=== PATIENT | male | born 1950 | race Caucasian/White ===

== ENCOUNTER 2016-05-27 08:44 | Emergency (ER) | payer MEDICARE, OTHER ==
[~2016-05-27] VITALS: Ht 177.8 cm; Wt 84.1 kg
[~2016-05-27 08:44] MED LIST: AMOX-358 PO; ASCO100T6 PO; ASCO500T6 PO; ASPI-860 PO; ATOR20TA PO; CHOL100061 PO; CLIN-78 PO; CLOP75TA28 PO; CTLP20T PO; ERGO400C PO; HYDR-3702 PO; MAGN100T4 PO; METO25TA60 PO; MGX400T PO; MULT-954 PO; RANI-419 PO; RANI150C4 PO; WARF4TAB PO; WARF5TAB PO; ZLP5T PO
--- OUTSIDE RECORDS SUMMARY | 2016-05-27 08:49 | XMS REPORT ---
Author Author GENERATED, SYSTEM Organization Unknown Address Unknown Phone Unavailable Care Team Providers Care Decaler Name Role Phone UNASSIGNED DOCTOR , DOCTOR PP [phone] Reason For Visit Chief Complaint CHEST PAIN SOB,C Social History Functional Status Functional Status from 01/30/2014 8:19 AM:LOC : AlertOriented To : Person,Place, TimeWeight Bearing Status : FullAssist Level : Independent# Assists : 1Functional Status from 01/29/2014 7:00 PM:LOC : AlertOriented To : Person,Place, Time,EventWeight Bearing Status : FullAssist Level : Independent# Assists : 1Functional Status from 01/29/2014 11:20 AM:LOC : AlertOriented To : Person,Place ,TimeWeight Bearing Status : FullAssist Level : Partial# Assists : 1 Vital Signs Hospital Vital Signs from 01/30/2014 9:16 AM:Weight : 83.0/ kgHeight : 5/8 ft, inHospital Vital Signs from 01/30/2014 9:00 AM:Heart Rate : 72Resp Rate : 18O2 Saturation (%) : 94Hospital Vital Signs from 01/30/2014 8:19 AM:Heart Rate : 72Hospital Vital Signs from 01/30/2014 8:15 AM:Temp : 98.2Heart Rate : 73Resp Rate : 17O2 Saturation (%) : 94Hospital Vital Signs from 01/30/2014 5:00 AM: Systolic BP (mmHg) : 120Diastolic BP (mmHg) : 78Mean BP (mmHg) : 83Hospital Vital Signs from 01/30/2014 3:56 AM:Weight : 83.0/ kgHeight : 5/8 ft,inHospital Vital Signs from 01/30/2014 3:00 AM:Temp : 97Heart Rate : 67Resp Rate : 11O2 Saturation (%) : 95Hospital Vital Signs from 01/30/2014 2:45 AM:Heart Rate : 66Resp Rate : 18O2 Saturation (%) : 96Hospital Vital Signs from 01/30/2014 2:30 AM:Heart Rate : 60Resp Rate : 14O2 Saturation (%) : 96Hospital Vital Signs from 01/30/2014 2:15 AM:Heart Rate : 58Resp Rate : 7O2 Saturation (%) : 95Hospital Vital Signs from 01/30/2014 2:00 AM:Heart Rate : 60Resp Rate : 11O2 Saturation (% ) : 94Hospital Vital Signs from 01/30/2014 1:45 AM:Heart Rate : 68Resp Rate : 25O2 Saturation (%) : 97Hospital Vital Signs from 01/30/2014 1:30 AM:Heart Rate : 61Resp Rate : 10O2 Saturation (%) : 96Hospital Vital Signs from 01/30/2014 1: 15 AM:Heart Rate : 59Resp Rate : 13O2 Saturation (%) : 96Hospital Vital Signs from 01/30/2014 1:00 AM:Heart Rate : 62Resp Rate : 14O2 Saturation (%) : 96Hospital Vital Signs from 01/30/2014 12:45 AM:Heart Rate : 58Resp Rate : 14O2 Saturation (%) : 96Hospital Vital Signs from 01/30/2014 12:30 AM:Heart Rate : 58Resp Rate : 11O2 Saturation (%) : 95Hospital Vital Signs from 01/30/2014 12:15 AM:Heart Rate : 64Resp Rate : 12O2 Saturation (%) : 93Hospital Vital Signs from 01/30/2014 12:00 AM:Heart Rate : 67Resp Rate : 12O2 Saturation (%) : 95Hospital Vital Signs from 01/29/2014 11:45 PM:Heart Rate : 66Resp Rate : 12O2 Saturation ( %) : 95Hospital Vital Signs from 01/29/2014 11:30 PM:Heart Rate : 61Resp Rate : 14O2 Saturation (%) : 94Hospital Vital Signs from 01/29/2014 11:15 PM:Heart Rate : 62Resp Rate : 14O2 Saturation (%) : 96Hospital Vital Signs from 01/29/2014 11: 00 PM:Heart Rate : 68Resp Rate : 11O2 Saturation (%) : 94Hospital Vital Signs from 01/29/2014 10:45 PM:Heart Rate : 68Resp Rate : 13O2 Saturation (%) : 94Hospital Vital Signs from 01/29/2014 10:30 PM:Heart Rate : 65Resp Rate : 12O2 Saturation (%) : 93Hospital Vital Signs from 01/29/2014 10:15 PM:Heart Rate : 68Resp Rate : 19O2 Saturation (%) : 93Hospital Vital Signs from 01/29/2014 10:00 PM:Heart Rate : 73Resp Rate : 17O2 Saturation (%) : 95Hospital Vital Signs from 01/29/2014 9:45 PM:Heart Rate : 69Resp Rate : 17O2 Saturation (%) : 95Hospital Vital Signs from 01/29/2014 9:30 PM:Heart Rate : 70Resp Rate : 17O2 Saturation (% ) : 95Hospital Vital Signs from 01/29/2014 9:15 PM:Heart Rate : 68Resp Rate : 16O2 Saturation (%) : 95Hospital Vital Signs from 01/29/2014 9:00 PM:Heart Rate : 69Resp Rate : 17O2 Saturation (%) : 95Hospital Vital Signs from 01/29/2014 8: 45 PM:Heart Rate : 70Resp Rate : 16O2 Saturation (%) : 95Hospital Vital Signs from 01/29/2014 8:30 PM:Heart Rate : 76Resp Rate : 14O2 Saturation (%) : 95Hospital Vital Signs from 01/29/2014 8:15 PM:Heart Rate : 69Resp Rate : 10O2 Saturation (%) : 96Hospital Vital Signs from 01/29/2014 8:00 PM:Heart Rate : 72Resp Rate : 15Systolic BP (mmHg) : 116Diastolic BP (mmHg) : 73Mean BP (mmHg) : 93O2 Saturation (%) : 93[facility]ospital Vital Signs from 01/29/2014 7:45 PM:Heart Rate : 68Resp Rate : 14O2 Saturation (%) : 94Hospital Vital Signs from 2013 7:30 PM:Heart Rate : 75Resp Rate : 25O2 Saturation (%) : 95[facility]ospital Vital Signs from 01/29/2014 7:15 PM:Heart Rate : 66Resp Rate : 16O2 Saturation (%) : 94Hospital Vital Signs from 01/29/2014 7:00 PM:Temp : 98.2Heart Rate : 75Heart Rate : 66Resp Rate : 10Systolic BP (mmHg) : 121Diastolic BP (mmHg) : 72Mean BP ( mmHg) : 87O2 Saturation (%) : 95[facility]ospital Vital Signs from 01/29/2014 6:00 PM: Heart Rate : 68Resp Rate : 16O2 Saturation (%) : 96Hospital Vital Signs from 4:45 PM:Temp : 97.9Heart Rate : 68Resp Rate : 14Systolic BP (mmHg) : 109Diastolic BP (mmHg) : 69Mean BP (mmHg) : 84O2 Saturation (%) : 94[facility]ospital Vital Signs from 01/29/2014 4:00 PM:Heart Rate : 69Resp Rate : 12Systolic BP ( mmHg) : 119Diastolic BP (mmHg) : 80Mean BP (mmHg) : 93O2 Saturation (%) : 95Hospital Vital Signs from 01/29/2014 3:00 PM:Heart Rate : 66Resp Rate : 12Systolic BP (mmHg) : 116Diastolic BP (mmHg) : 81Mean BP (mmHg) : 92O2 Saturation (%) : 96[facility]ospital Vital Signs from 01/29/2014 2:00 PM:Heart Rate : 66Resp Rate : 14Systolic BP (mmHg) : 116Diastolic BP (mmHg) : 75Mean BP (mmHg) : 90O2 Saturation (%) : 96Hospital Vital Signs from 01/29/2014 1:00 PM:Heart Rate : 62Resp Rate : 11Systolic BP (mmHg) : 113Diastolic BP (mmHg) : 74Mean BP ( mmHg) : 87O2 Saturation (%) : 96Hospital Vital Signs from 01/29/2014 12:00 PM: Heart Rate : 61Resp Rate : 12Systolic BP (mmHg) : 115Diastolic BP (mmHg) : 80Mean BP (mmHg) : 97O2 Saturation (%) : 97[facility]ospital Vital Signs from 01/29/2014 11:35 AM:Temp : 98.7Heart Rate : 62Resp Rate : 7Hospital Vital Signs from 2013 11:20 AM:Heart Rate : 67 Results Chemistry from 01/30/2014 4:59 AMSODIUM 136 MMOL/L (136-145 MMOL/L) POTASSIUM 4.2 MMOL/L (3.5-5.1 MMOL/L) CHLORIDE 105 MMOL/L (98-107 MMOL/L) TCO2 28.3 MMOL/L (21.0-32.0 MMOL/L) ANION GAP 2.7 MMOL/L L (8.0-16.0 MMOL/L) BUN 21 MG/DL H (7-18 MG/DL) CREATININE 0.96 MG/DL (0.63-1.13 MG/DL) BUN/CREATININE RATIO 21.9 H (9.1-17.0 ) GLUCOSE 93 MG/DL (65-99 MG/DL) GFR EST NON AFR ROMANIAN 83 ML/MIN GFRA EST AFR AMER >90 ML/MIN CALCIUM 8.6 MG/DL (8.5-10.1 MG/DL) EST AVG GLUCOSE 119.8 gm/dl CHOLESTEROL 171 MG/DL (50-199 MG/DL) TRIGLYCERIDES 134 MG/DL (0-149 MG/DL) HDL CHOLESTEROL 38 MG/DL L (40-60 MG/DL) LDL (CALCULATED) CHOL 106 MG/DL H (0-99 MG/DL) HEMOGLOBIN A1C 5.8 % (4.5-6.2 %)Chemistry from 01/29/2014 9:12 AMSODIUM 139 MMOL/ L (136-145 MMOL/L) POTASSIUM 4.0 MMOL/L (3.5-5.1 MMOL/L) CHLORIDE 106 MMOL/L (98-107 MMOL/L) TCO2 30.9 MMOL/L (21.0-32.0 MMOL/L) ANION GAP 2.1 MMOL/L L (8.0-16.0 MMOL/L) BUN 23 MG/DL H (7-18 MG/DL) CREATININE 0.92 MG/DL (0.63-1.13 MG/DL) BUN/CREATININE RATIO 25.0 H (9.1-17.0 ) GLUCOSE 94 MG/DL (65-99 MG/DL) GFR EST NON AFR ROMANIAN 88 ML/MIN GFRA EST AFR AMER >90 ML/MIN CALCIUM 8.6 MG/DL (8.5-10.1 MG/DL)Hematology from 01/30/2014 4:59 AMWBC 6.2 X10e3 /UL (3.6-11.2 X10e3/UL) RBC 4.42 X10e6/UL (4.06-5.63 X10e6/UL) HEMOGLOBIN 15.2 G/DL (12.5-16.3 G/DL) HEMATOCRIT 43.0 % (36.7-47.1 %) MCV 97.2 FL (80.0-100.0 FL) MCH 34.5 PG H (27.0-33.0 PG) MCHC 35.5 G/DL (32.0-36.0 G/DL) RDW 12.5 % (12.3-17.0 %) RDWSD 42.0 (37.1-47.8 ) PLATELET 141 X10e3/UL L (159-386 X10e3/UL) MPV 8.2 FL (7.4-10.4 FL)Hematology from 01/29/2014 8:17 AMWBC 5.0 X10e3/UL (3.6- 11.2 X10e3/UL) RBC 4.57 X10e6/UL (4.06-5.63 X10e6/UL) HEMOGLOBIN 15.6 G/DL (12.5-16.3 G/DL) HEMATOCRIT 44.1 % (36.7-47.1 %) MCV 96.4 FL (80.0-100.0 FL) MCH 34.2 PG H (27.0-33.0 PG) MCHC 35.5 G/DL (32.0-36.0 G/DL) RDW 12.8 % (12.3-17.0 %) RDWSD 42.9 (37.1-47.8 ) PLATELET 157 X10e3/UL L (159-386 X10e3/UL) MPV 8.3 FL (7.4-10.4 FL) AUTOMATED DIFF PERFORMED SEGS 56.7 % LYMPHOCYTES 27.4 % MONOCYTES 12.7 % EOSINOPHILS 2.3 % BASOPHILS 0.9 % ABSOLUTE NEUTROPHILS 2.8 X10e3/UL (1.8-7.8 X10e3/UL) ABSOLUTE LYMPHOCYTES 1.4 X10e3/UL (1.0-3.0 X10e3/UL) ABSOLUTE MONOCYTES 0.6 X10e3/UL (0.3-1.0 X10e3/UL) ABSOLUTE EOSINOPHILS 0.1 X10e3/UL (0.0-0.5 X10e3/UL) ABSOLUTE BASOPHILS 0.0 X10e3/UL (0.0-0.2 X10e3/UL)Coagulation from 01/29/2014 9: 12 AMPROTHROMBIN TIME 11.5 SECONDS (9.4-11.5 SECONDS) INR 1.1 PARTIAL THROMBOPLASTIN TIME 25.9 SECONDS (22.0-28.0 SECONDS) Problems Encounter Diagnosis Catheterization of Left Heart Comment:Problem resolved by [facility] Workflow upon Discharge, Status:Resolved. Percutaneous Transluminal Coronary Angioplasty Comment:Problem resolved by [facility] Workflow upon Discharge, Status:Resolved. Encounters Encounter Diagnosis Catheterization of Left Heart Comment:Problem resolved by [facility] Workflow upon Discharge, Status:Resolved. Percutaneous Transluminal Coronary Angioplasty Comment:Problem resolved by [facility] Workflow upon Discharge, Status:Resolved. Plan of Care Treatment Plan from 01/30/2014 10:24 AM:Care Management Note : Plan for discharge for later today. Procedures No relevant procedures performed. Immunizations No immunizations administered or ordered. Hospital Course Hospital Discharge Instructions Allergies, Adverse Reactions, Alerts Lortab causes Unknown.Sulfa (Sulfonamide Antibiotics) causes Hives.No Latex Allergy.No IV Contrast Allergy. Medication It is the responsibility of the patient or patient printing sales representative to confirm the list of medications with either the patient's personal care provider or the patient's follow-up care provider to ensure the patient has an appropriate list of medications to take at home. Preliminary list - medication reconciliation not completed.Discharge medicationsNew medicationsaspirin 81 mg tablet,chewable, Ordered By: JOSÉ DE LEON APRN Directions: 1 tablet oral daily every morning clopidogrel 75 mg Tablet, Ordered By: JOSÉ DE LEON APRN Directions: 1 tablet oral daily metoprolol tartrate 25 mg Tablet, Ordered By: JOSÉ DE LEON APRN Directions: 0.5 tablet oral twice a day Continued medicationsatorvastatin 20 mg Tablet, Ordered By: JOSÉ DE LEON APRN Directions: 1 tablet oral daily at bedtime citalopram 20 mg Tablet, Ordered By: JOSÉ DE LEON APRN Directions: 1 tablet oral daily enoxaparin (Lovenox) 80 mg/0.8 mL Syringe, Ordered By: JOSÉ DE LEON APRN Directions: 80 mg subcutaneous twice a day daily multiple vitamin 1 tablet daily 01/28/2014 vitamin D3 1 tablet daily 01/28/2014 Changed medicationswarfarin (Coumadin) 5 mg Tablet, Ordered By: JOSÉ DE LEON , KAREN Directions: 1 tablet oral daily at bedtime Stopped medicationszolpidem 10 mg Tablet Directions: 1 tablet oral daily at bedtime PRN insomnia
--- OUTSIDE RECORDS SUMMARY | 2016-05-27 08:50 | XMS REPORT ---
Author Author GENERATED, SYSTEM Organization Unknown Address Unknown Phone Unavailable Care Team Providers Care Insulation Nozzleman Name Role Phone UNASSIGNED DOCTOR , DOCTOR PP [phone] Reason For Visit Chief Complaint CHEST PAIN [...] MG/DL (65-99 MG/DL) GFR EST NON AFR PARAGUAYAN 83 ML/MIN GFRA EST AFR AMER >90 [...] MG/DL (65-99 MG/DL) GFR EST NON AFR PARAGUAYAN 88 ML/MIN GFRA EST AFR AMER >90 [...] the responsibility of the patient or patient equal opportunity representative to confirm the list of medications [...]
[2016-05-27] MEDS ORDERED: RANI150C4 PO (09:10)
--- NOTE | 2016-05-27 09:29 | NUR ---
states to this nurse that pt is currently taking tylenol with codeine that was prescribed from a previous procedure.
[2016-05-27] MEDS ORDERED: KETOROLAC 60 MG/2 ML (TORADOL) VIAL IM ONE (09:30)
[2016-05-27 09:37] LABS: BASOPHILS % (AUTO) 1 % (0-2); EOSINOPHILS # (AUTO) 0.1 10^3uL; EOSINOPHILS % (AUTO) 3 % (0-4); LYMPHOCYTES # (AUTO) 0.9 X10^3; MEAN CORPUSCULAR HGB CONC 35.2 g/dL (31.0-37.0); MEAN CORPUSCULAR VOLUME 95 FL (80-100); MEAN PLATELET VOLUME 10.3 FL (6.0-9.5); MONOCYTES # (AUTO) 0.7 X10^3; MONOCYTES % (AUTO) 12 % (3-11); NEUTROPHILS # (AUTO) 3.6 X10^3; NEUTROPHILS % (AUTO) 68 % (51-67); PLATELET COUNT 142 10^3uL (150-450); WHITE BLOOD COUNT 5.34 10^3uL (4.0-11.0)
[2016-05-27 09:40] LABS: MEAN CORPUSCULAR HEMOGLOBIN 33.5 PG (26.0-34.0)
[2016-05-27 09:50] LABS: ALBUMIN 3.8 g/dL (3.4-5.0); ANION GAP 13.5 MEQ/L (3-15); CALCULATED IONIZED CALCIUM 3.9 mg/dL (3.8-4.6)
[2016-05-27 10:20] LABS: ERYTHROCYTE SEDIMENTATION RT* 8 mm/hr (0-19)
--- NOTE | 2016-05-27 11:10 | Diagnostic Imaging Report ---
Indication: Pain. Comparison: Radiographs of the lumbar spine dated November 07, 2012. Technique: 5 radiographs of the pelvis and bilateral hips dated May 27, 2016. Findings: Postsurgical changes are identified within the lower lumbar spine. No acute fracture or dislocation. No destructive osseous process. Minimal degenerative changes in the bilateral hips. The bilateral femoral heads maintain their normal shape and contour. No suspicious radiopaque foreign body. IMPRESSION: No acute osseous abnormality with minimal degenerative changes. Postsurgical changes within the visualized lower lumbar spine. Dictated by: Dictated on workstation # [id number]
[2016-05-27] MEDS ORDERED: ACET-789 PO (12:26)
--- NOTE | 2016-05-27 12:31 | Diagnostic Imaging Report ---
Indication: Thigh pain. Comparison: Unavailable. Technique: Venous Doppler ultrasound of the left lower extremity performed on May 27, 2016. Findings: Normal flow, compression, and augmentation is noted within the visualized deep venous structures of the left lower extremity. Spectral waveform analysis demonstrates normal augmentation. No suspicious fluid collection identified. IMPRESSION: No evidence of a deep venous thrombosis within the left lower extremity. Dictated by: Dictated on workstation # [id number]
[2016-05-27 12:54] VITALS: BP 113/65
== END 2016-05-27 12:55 | disposition home or self-care (01) ==
LOC: ED 08:46
DX: S76.012A Strain of muscle, fascia and tendon of left hip, initial encounter (principal); Z79.01 Long term (current) use of anticoagulants; Z87.898 Personal history of other specified conditions; Z86.718 Personal history of other venous thrombosis and embolism
CPT/HCPCS: 36415; 73521; 80053; 84550; 85025; 85652; 86140; 86431; 93971; 96372; 99283; J1885; 99284

== ENCOUNTER → 2016-05-30 | Outpatient (CLI) | payer MEDICARE, OTHER ==
[~2016-05-30] MED LIST changes: +ACET-789 PO
--- NOTE | 2016-05-30 18:22 | Diagnostic Imaging Report ---
PROCEDURE: MRI lumbar spine. TECHNIQUE: Multiplanar, multisequence MRI of the lumbar spine was performed without contrast. INDICATION: Left groin pain. COMPARISON: 10/24/2014. FINDINGS: There is fusion with pedicle screws and rods at L4 and L5. Alignment is good. Body height is well maintained throughout. There is some artifact present due to the hardware. L4-L5 disc shows paramedian disc herniation on the left which is causing some encroachment upon the left nerve root sleeve in the lateral recess. L5-S1 disc shows desiccation with minimal central disc bulge. L3-L4 shows minimal annular bulge with no focal herniation. Posterior facet and ligamentous hypertrophy present as well which is causing [id number] encroachment upon the left neuroforamen. No central canal stenosis. At L2-L3, there is mild disc protrusion eccentric to the right extending into the lateral recess and nerve root sleeve with mild encroachment noted. Mild posterior facet hypertrophy as well. At L1-L2, the disc appears normal as do the facets. There is diffuse fatty change noted throughout the sacral ala and iliac wings which may be secondary to osteoporosis. The paraspinal soft tissues are normal. IMPRESSION: 1. 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 2. Minimal central disc bulge at L5-S1. 3. Mild annular bulge with hypertrophic facet changes causing mild encroachment upon the left neuroforamen on the left at L3-L4. 4. Comparison with previous examination does show progression of the disc disease with the L4-L5 disc protrusion not present on previous exam. Dictated by: Dictated on workstation # [id number]
== END ==
LOC: RAD 16:47
PROVIDERS: ATTEND Family Medicine
DX: M54.5 Low back pain (principal); R10.32 Left lower quadrant pain; M51.26 Other intervertebral disc displacement, lumbar region
CPT/HCPCS: 72148

== ENCOUNTER 2016-07-11 10:00 | Outpatient (RCR) | payer MEDICARE, OTHER | END 2016-07-15 15:49 | disposition home or self-care (01) | LOC: PT 10:00 | PROVIDERS: ATTEND Family Medicine | DX: R10.30 Lower abdominal pain, unspecified (principal) | CPT/HCPCS: 97032; 97035; 97110; 97140; 97161; G0283; G8978; G8979; 97014 ==

== ENCOUNTER → 2016-09-26 | Outpatient (CLI) | payer MEDICARE, OTHER | LOC: EMS 10:18 | DX: R07.89 Other chest pain (principal); R42 Dizziness and giddiness; R11.0 Nausea; Z95.818 Presence of other cardiac implants and grafts ==